=== PATIENT | female | born 1970 | race Caucasian/White ===

== ENCOUNTER 2019-12-31 14:58 | Emergency (ER) | payer BC, OTHER ==
[~2019-12-31] VITALS: Ht 162.6 cm; Wt 97.5 kg
[2019-12-31 15:32] LABS: ABSOLUTE NEUTROPHILS 5.5 thou/uL (1.4-8.2); BASOPHILS 1.4 % (0.0-2.0); EOSINOPHILS 3.4 % (0.0-3.0); HEMATOCRIT 39.6 % (37.0-47.0); HEMOGLOBIN 13.6 gm/dL (12.0-15.0); MCH 32.7 pg (26.0-34.0); MCHC 34.2 g/dL (28.0-37.0); MCV 95.3 fL (80.0-100.0); MONOCYTES 9.3 % (1.0-8.0); PLATELET COUNT 312 thou/uL (150-400); POLYS 61.9 % (36.0-66.0); RBC 4.16 mil/uL (4.20-5.00); RDW 12.5 % (10.5-14.5); WBC 8.9 thou/uL (4.0-11.0)
[2019-12-31 15:40] LABS: ANION GAP 6 mmol/L (7-16); BUN 15 mg/dL (7-18); CALCIUM 8.6 mg/dL (8.5-10.1); CHLORIDE 103 mmol/L (98-107); CO2 29 mmol/L (21-32); GLUCOSE 106 mg/dL (74-106); POTASSIUM 4.1 mmol/L (3.5-5.1); SODIUM 138 mmol/L (136-145)
[2019-12-31] MEDS ORDERED: LISINOPRIL2.5 MG PO (15:47)
[2019-12-31 15:48] LABS: TROPONIN-I <0.06 ng/mL (<0.06)
[2019-12-31] MEDS ORDERED: ARMODAFINIL150 MG PO (15:48)
[2019-12-31] MEDS ORDERED: HYDROCHLOROTHIA25 M2 PO (15:49)
[2019-12-31] MEDS ORDERED: ROSUVASTATIN CA10 MG PO (15:49)
[2019-12-31] MEDS ORDERED: PROTONIX40 M1 PO (16:16)
[2019-12-31] MEDS ORDERED: CARAFATE 1 GM TA1 G1 PO (16:16)
[2019-12-31 16:35] VITALS: BP 121/80
--- NOTE | 2020-01-01 08:36 | EKG ---
[facility] [place] [address] ELECTROCARDIOGRAM REPORT Name: REANNA LITTLE Room #: DEP [facility]#: [id number] Admission: 12/31/19 Attend Phys: Discharge: 12/31/19 Date of : 68 Report #: [id number] THIS REPORT FOR: cc: Jimmie Lopez MD, Alexander C. MD Lundgren, Craig H. MD [facility] ~ THIS REPORT FOR: //name// [facility] ED Test Date: 2019-12-31 Test Time: 15:06:04 Pat Name: REANNA LITTLE Department: Room: Gender: Lodge Officer: : 1970 Requested By: Chirag Cavazos Order Number: [id number] MD: Steven Rutherford Measurements Intervals [place] Rate: 73 P: 5 FL: 149 QRS: -31 QRSD: 105 T: 46 QT: 416 QTc: 459 Interpretive Statements Sinus rhythm Left axis deviation Abnormal R-wave progression, early transition Borderline T abnormalities, anterior leads No previous ECG available for comparison Electronically Signed On 01-01-2020 8:34:41 CDT by Steven Rutherford [email or web address] <ELECTRONICALLY SIGNED> By: Steven Rutherford MD, [facility] 01/01/20 0834 [id number] Steven Rutherford MD, [facility] /EPI
== END 2019-12-31 16:30 | disposition home or self-care (01) ==
LOC: ER 14:58
PROVIDERS: Emergency Medicine
DX: R07.89 Other chest pain (principal); I10 Essential (primary) hypertension; E78.00 Pure hypercholesterolemia, unspecified; G47.30 Sleep apnea, unspecified; Z98.890 Other specified postprocedural states

== ENCOUNTER → 2020-01-03 | Outpatient (CLI) | payer BC, OTHER ==
[~2020-01-03] MED LIST: ARMODAFINIL150 MG PO; CARAFATE 1 GM TA1 G1 PO; HYDROCHLOROTHIA25 M2 PO; LISINOPRIL2.5 MG PO; PROTONIX40 M1 PO; ROSUVASTATIN CA10 MG PO
== END ==
LOC: SJCVCIMAG 08:27
DX: I10 Essential (primary) hypertension (principal)